=== PATIENT | female | born 1945 | race Caucasian/White ===

== ENCOUNTER → 2017-12-20 | Outpatient (REF) | payer MEDICARE, OTHER, SELFPAY | LOC: LAB 16:27 | PROVIDERS: Family Provider Internal Medicine; PCP Orthopaedic Surgery; Visit Provider Orthopaedic Surgery | DX: M17.0 Bilateral primary osteoarthritis of knee (principal); R52 Pain, unspecified | CPT/HCPCS: 87070; 87075; 87205; 89051 ==

== ENCOUNTER → 2018-01-23 12:14 | Outpatient (CLI) | payer MEDICARE, OTHER, SELFPAY ==
--- NOTE | 2018-01-23 | DI.NM.S_ITS ---
PROCEDURE: NE BONE SCAN WHOLE BODY RADIOPHARMACEUTICAL: 22.0 mCi Tc-99m MDP IV. INDICATIONS: BILATERAL PRIMARY OSTEOARTHRITIS OF KNEE TECHNIQUE: Delayed whole-body scintigrams were obtained approximately 3-4 hours after intravenous injection of radiotracer. Anterior and posterior views were acquired from vertex to feet. Additional left and right oblique views of the knees bilaterally were obtained. COMPARISON: [facility], [place], NE BONE SCAN THREE PHASE, 03/23/2016, 10:53. FINDINGS: There is abnormal prominence marrow space uptake involving the proximal diaphysis of the left humerus, in a pattern worrisome for representing evidence of malignancy or infection (less likely). Trauma he also is considered less likely. On the posterior projection there is asymmetric left-sided dominant mid cervical posterior element region isotope uptake, most likely degenerative in origin. Bilateral knee arthroplasties. IMPRESSION: Recommend obtaining initial plain film followup assessment of the proximal diaphysis of the left humerus, and also of the cervical spine to include both obliques. Expected postoperative change at the knees bilaterally indicating total knee arthroplasties showing no evidence of infection or loosening. Mild to moderate a.c. joint osteoarthritis symmetric bilaterally. Dictated by: Khari Hernnádez M.D. on 01/23/2018 at 16:18 Approved by: Khari Hernández M.D. on 01/23/2018 at 16:21
== END ==
PROVIDERS: Family Provider Internal Medicine; PCP Internal Medicine; Visit Provider Orthopaedic Surgery
DX: M17.0 Bilateral primary osteoarthritis of knee (principal)
CPT/HCPCS: 78306; A9503

== ENCOUNTER → 2018-04-03 12:57 | Outpatient (CLI) | payer MEDICARE, OTHER, SELFPAY ==
--- NOTE | 2018-04-03 | DI.MRI.S_ITS ---
PROCEDURE: MR HUMERUS LT WO/W CON INDICATIONS: CHRONIC LEFT SHOULDER PAIN TECHNIQUE: Noncontrast coronal T1 spin echo and STIR, sagittal T1 spin echo with fat saturation and STIR, axial T1 spin echo and T2 fast spin echo with fat saturation. After the administration of contrast, axial/sagittal/coronal T1 spin echo with fat saturation through the left humerus. COMPARISON: [facility], [place], OR BONE SCAN THREE PHASE, 03/23/2016, 10:53. [place], [place] BONE SCAN WHOLE BODY, 01/23/2018, 15:28. [facility], CR, XR SHOULDER 2+ VIEWS LEFT, 03/14/2018, 14:50. FINDINGS: Image quality: Excellent. Bones: There is a 7 x 11 mm cortical-based expansile lesion in the proximal humeral shaft demonstrating hypointense T1 and hyperintense T2 signal with postcontrast enhancement. This correlates with eccentric lytic lesion seen on the radiograph and abnormal uptake seen on bone scan. Elsewhere, the visualized bone marrow demonstrates normal signal. Soft tissues: Mild soft tissue enhancement adjacent to the proximal completion is present, most likely reactive. No soft tissue masses are visualized. The scanned muscles demonstrate normal overall bulk and internal signal. Subcutaneous tissues appear normal as well. No abnormal soft tissue enhancement. IMPRESSION: A 7 x 11 mm cortical-based mass lesion in the proximal humeral shaft, demonstrating abnormal signal and enhancement. This correlates with bone scan finding of abnormal uptake and radiographic finding of a lytic lesion. Differential diagnoses include infection (osteomyelitis), and neoplasm such as myeloma and metastasis. Sclerosis and calcification around the mass suggests an indolent process such as chronic infection and low-grade neoplasm. Dictated by: Rolando Anna M.D. on 04/03/2018 at 15:39 Transcribed by: MARTY on 04/03/2018 at 15:52 Approved by: Rolando Anna M.D. on 04/04/2018 at 10:13
== END ==
PROVIDERS: Family Provider Internal Medicine; PCP Internal Medicine; Visit Provider Orthopaedic Surgery
DX: M25.512 Pain in left shoulder (principal); G89.29 Other chronic pain
CPT/HCPCS: 73220; A9579